=== PATIENT | male | born 1940 | race Caucasian/White ===

== ENCOUNTER 2024-01-19 15:10 | Emergency (ER) | payer MEDICARE ==
[~2024-01-19] VITALS: Ht 182.9 cm; Wt 79.4 kg
[2024-01-19] MEDS: BACI/NEOM/POLY B OINT PKT 1 UDPKT PACKET TP ONE (16:00)
[2024-01-19] MEDS ORDERED: TDAP [DIPH/PERTUSSIS/TET] 0.5 ML VIAL IM ONE (16:47)
[2024-01-19] MEDS: TDAP [DIPH/PERTUSSIS/TET] 0.5 ML VIAL IM ONE (16:52)
[2024-01-19 18:10] VITALS: BP 95/49; TEMP 98; O2SAT 99
== END 2024-01-19 18:10 | disposition home or self-care (01) ==
LOC: ER 15:24
DX: S01.81XA Laceration without foreign body of other part of head, initial encounter (principal); S41.112A Laceration without foreign body of left upper arm, initial encounter; M79.652 Pain in left thigh; I10 Essential (primary) hypertension; W18.30XA Fall on same level, unspecified, initial encounter; Y93.89 Activity, other specified; Y92.89 Other specified places as the place of occurrence of the external cause; Y99.8 Other external cause status
CPT/HCPCS: 99285; 70450; 90471; 90715; 73503; 73564; A6403; 73502

== ENCOUNTER 2024-12-27 18:26 | Inpatient (IN) | payer MEDICARE ==
[~2024-12-27] VITALS: Ht 182.9 cm; Wt 80.3 kg
[2024-12-27 20:09] LABS: LYMPHOCYTES # (AUTO) 0.5 K/uL (0.8-4.8); WHITE BLOOD COUNT (AUTO) 12.4 K/uL (4.3-11.0)
[2024-12-27 20:18] LABS: BASOPHILS % (AUTO) 0.3 % (0.0-2.0); HEMATOCRIT 32 % (39-51); HEMOGLOBIN 10.5 g/dL (13.5-17.5); LYMPHOCYTES % (AUTO) 3.7 % (20.0-44.0); MEAN CORPUSCULAR HEMOGLOBIN 34 PG (26.0-33.0); MEAN CORPUSCULAR HGB CONC 33 g/dl (31.0-36.0); MEAN CORPUSCULAR VOLUME 103 fL (80-96); MONOCYTES # (AUTO) 0.7 K/uL (0.1-1.30); MONOCYTES % (AUTO) 5.4 % (2.0-12.0); NEUTROPHILS # (AUTO) 11.2 K/uL (1.8-8.9); NEUTROPHILS % (AUTO) 90.6 % (43.0-81.0); PLATELET COUNT (AUTO) 311 K/uL (150-450); RED BLOOD CELL COUNT(AUTO) 3.06 MIL/uL (4.5-6.0); RED CELL DISTRIBUTION WIDTH 33.7 % (11.5-15.0)
[2024-12-27 20:31] LABS: ALANINE AMINOTRANSFERASE 36 U/L (12-78); ALBUMIN 4.5 g/dL (3.4-5.0); ALKALINE PHOSPHATASE 58 U/L (46-116); ASPARTATE AMINOTRANSFERASE 22 U/L (15-37); BILIRUBIN,DIRECT 0.6 mg/dL (0.0-0.2); BILIRUBIN,TOTAL 2.6 mg/dL (0.2-1.0); CALCIUM, SERUM 9.2 mg/dL (8.5-10.1); CARBON DIOXIDE 23 mmol/L (21-32); CHLORIDE 97 mmol/L (98-107); CREATININE 1.2 mg/dL (0.6-1.3); GLUCOSE 163 mg/dL (74-106); POTASSIUM 4.7 mmol/L (3.5-5.1); SODIUM SERUM 129 mmol/L (136-145); TOTAL PROTEIN, SERUM 7.4 g/dL (6.4-8.2); UREA NITROGEN, BLOOD 25 mg/dL (7-18)
[2024-12-27 20:33] LABS: ALCOHOL, BLOOD < 3 mg/dL (0-10); NT-PRO BNP 49 pg/mL (0-125)
[2024-12-27 21:01] LABS: APPEARANCE,URINE Clear (CLEAR); BILIRUBIN,URINE Negative (NEGATIVE); BLOOD, URINE Negative Ery/uL (NEGATIVE); COLOR,URINE YELLOW (YELLOW); KETONES,URINE Negative (NEGATIVE); LEUKOCYTE ESTERASE ,URINE Negative (NEGATIVE); NITRITE, URINE Negative (NEGATIVE); PH,URINE 5.5 (5.0-8.0); PROTEIN,URINE 100 mg/dl (NEGATIVE); UGLUCOSE Negative (NEGATIVE); UROBILINOGEN,URINE 0.2 EU/dL (0.2)
[2024-12-27 21:03] LABS: ADD URINE CULTURE NO; BACTERIA,URINE None seen /HPF (None Seen); RBC,URINE 0-2 /HPF (0-2); SQUAMOUS EPITHELIAL CELL,UR None Seen /HPF (None Seen); WBC,URINE 0-2 /HPF (0-3)
[2024-12-27 21:04] LABS: AMPHETAMINE, URINE NEGATIVE (NEGATIVE); BARBITURATE, URINE NEGATIVE (NEGATIVE); BENZODIAZEPINE, URINE NEGATIVE (NEGATIVE); COCCAINE, URINE NEGATIVE (NEGATIVE); OPIATE, URINE NEGATIVE (NEGATIVE); PHENCYCLIDINE SCREEN,URINE NEGATIVE (NEGATIVE)
[2024-12-27 21:11] LABS: CANNABINOID, URINE POSITIVE (NEGATIVE)
[2024-12-27] MEDS: IV NS 0.9% 1,000 ML BAG IV ONE (21:30)
[2024-12-27 22:04] LABS: ANISOCYTOSIS 1+; HYPOCHROMASIA 1+; MONOCYTES % (MANUAL) 5 % (0-11.0); MYELOCYTES % 1 % (0-0); NEUTROPHILS % (MANUAL) 94 (42-76); PLATELET ESTIMATE ADEQUATE
[2024-12-27 22:05] LABS: OVALOCYTES 1+
[2024-12-27] MEDS ORDERED: Z GUARD REMEDY 4 OZ OINT TP PRN (23:30)
[2024-12-27] MEDS ORDERED: ONDANSETRON HCL/PF 4 MG/2 ML VIAL IVP PRN (23:30)
[2024-12-27] MEDS ORDERED: MAGNESIUM HYDROXIDE 30 ML UDC PO PRN (23:30)
[2024-12-28 00:50] VITALS: BP 151/66; TEMP 97.5; O2SAT 99
[2024-12-28 01:35] VITALS: BP 151/66; TEMP 97.5; O2SAT 99
[2024-12-28] MEDS: IV NS 0.9% 1,000 ML IV PRN (01:40)
[2024-12-28 07:00] VITALS: BP 167/92; TEMP 97.3; O2SAT 99
[2024-12-28 07:32] LABS: BASOPHILS % (AUTO) 0.3 % (0.0-2.0); EOSINOPHILS % (AUTO) 0.4 % (0.0-6.0); HEMATOCRIT 28 % (39-51); HEMOGLOBIN 9.7 g/dL (13.5-17.5); LYMPHOCYTES # (AUTO) 0.6 K/uL (0.8-4.8); MEAN CORPUSCULAR HEMOGLOBIN 35 PG (26.0-33.0); MEAN CORPUSCULAR HGB CONC 34 g/dl (31.0-36.0); MEAN CORPUSCULAR VOLUME 103 fL (80-96); MONOCYTES # (AUTO) 0.7 K/uL (0.1-1.30); NEUTROPHILS # (AUTO) 7.7 K/uL (1.8-8.9); NEUTROPHILS % (AUTO) 84.3 % (43.0-81.0); PLATELET COUNT (AUTO) 288 K/uL (150-450); RED BLOOD CELL COUNT(AUTO) 2.74 MIL/uL (4.5-6.0); RED CELL DISTRIBUTION WIDTH 33.1 % (11.5-15.0); WHITE BLOOD COUNT (AUTO) 9.2 K/uL (4.3-11.0)
[2024-12-28 07:47] LABS: ALBUMIN 3.9 g/dL (3.4-5.0); BILIRUBIN,DIRECT 0.4 mg/dL (0.0-0.2); BILIRUBIN,TOTAL 2.6 mg/dL (0.2-1.0); TOTAL PROTEIN, SERUM 6.8 g/dL (6.4-8.2)
[2024-12-28 07:56] LABS: CALCIUM, SERUM 8.6 mg/dL (8.5-10.1); CREATININE 1.1 mg/dL (0.6-1.3); MAGNESIUM 2.1 mg/dL (1.8-2.4); PHOSPHORUS 3.2 mg/dL (2.5-4.9); POTASSIUM 4.6 mmol/L (3.5-5.1)
[2024-12-28 08:04] LABS: THYROID STIMULATING HORMONE 4.91 uIU/mL (0.358-3.74)
[2024-12-28] MEDS: PANTOPRAZOLE 40 MG TABLET.DR PO SCH (08:05)
[2024-12-28] MEDS ORDERED: VITA40TA PO (08:46)
[2024-12-28] MEDS ORDERED: TADA5TAB2 PO (08:46)
[2024-12-28] MEDS ORDERED: LISI10TA29 PO (08:46)
[2024-12-28] MEDS ORDERED: ZINC50TA69 PO (08:46)
[2024-12-28] MEDS ORDERED: IBUP-23 PO (08:46)
[2024-12-28] MEDS ORDERED: CHOL100062 PO (08:46)
[2024-12-28 09:07] LABS: ANISOCYTOSIS 3+; EOSINOPHILS % (MANUAL) 1 % (0-4); LYMPHOCYTES % (MANUAL) 8 % (16-48); MONOCYTES % (MANUAL) 8 % (0-11.0); NEUTROPHILS % (MANUAL) 83 (42-76); PLATELET ESTIMATE ADEQUATE
[2024-12-28 09:08] LABS: OVALOCYTES 1+; TARGET CELLS 1+
[2024-12-28] MEDS: ACETAMINOPHEN 325 MG TABLET PO PRN (09:55)
[2024-12-28] MEDS: DIAZEPAM 5 MG TABLET PO ONE (10:33)
[2024-12-28 12:46] LABS: CREATININE, URINE 65.5 MG/DL (30.0-125.0); URINE TOTAL PROTEIN 28.9 mg/dL (0-11.9)
[2024-12-28] MEDS ORDERED: HYDROCODONE/APAP 5/325MG TABLET PO PRN (13:00)
[2024-12-28] MEDS: CEFTRIAXONE 1 G in IV D5W 50 ML IV SCH (14:15)
[2024-12-28 16:00] VITALS: BP 146/72; TEMP 97.9; O2SAT 100
[2024-12-28 20:00] VITALS: BP 158/80; TEMP 97.3; O2SAT 100
[2024-12-28] MEDS: TAMSULOSIN 0.4 MG CAP.SR.24H PO SCH (22:34)
[2024-12-29 07:45] LABS: BASOPHILS % (AUTO) 0.8 % (0.0-2.0); EOSINOPHILS # (AUTO) 0.1 K/uL (0.0-0.7); EOSINOPHILS % (AUTO) 1.6 % (0.0-6.0); HEMATOCRIT 26 % (39-51); HEMOGLOBIN 8.8 g/dL (13.5-17.5); LYMPHOCYTES # (AUTO) 0.7 K/uL (0.8-4.8); LYMPHOCYTES % (AUTO) 13.9 % (20.0-44.0); MEAN CORPUSCULAR HEMOGLOBIN 35 PG (26.0-33.0); MEAN CORPUSCULAR HGB CONC 34 g/dl (31.0-36.0); MEAN CORPUSCULAR VOLUME 104 fL (80-96); MONOCYTES # (AUTO) 0.4 K/uL (0.1-1.30); MONOCYTES % (AUTO) 8.7 % (2.0-12.0); NEUTROPHILS # (AUTO) 3.6 K/uL (1.8-8.9); PLATELET COUNT (AUTO) 222 K/uL (150-450); WHITE BLOOD COUNT (AUTO) 4.8 K/uL (4.3-11.0)
[2024-12-29] MEDS: ZINC SULFATE 220 MG CAPSULE PO SCH (08:29)
[2024-12-29] MEDS: CHOLECALCIFEROL 1,000 UNIT TABLET (VIT D3) PO SCH (08:29)
[2024-12-29] MEDS: LISINOPRIL (10MG) 10 MG TABLET PO SCH (08:29)
[2024-12-29 08:41] LABS: CALCIUM, SERUM 8.3 mg/dL (8.5-10.1); MAGNESIUM 2.2 mg/dL (1.8-2.4); PHOSPHORUS 3.6 mg/dL (2.5-4.9); POTASSIUM 4.4 mmol/L (3.5-5.1)
[2024-12-29] MEDS ORDERED: TAMS-12 PO (08:41)
[2024-12-29 09:08] LABS: THYROID STIMULATING HORMONE 4.89 uIU/mL (0.358-3.74); URIC ACID 6.4 mg/dL (2.6-7.2)
[2024-12-29 10:36] VITALS: BP 137/70; TEMP 97.2; O2SAT 97
== END 2024-12-29 11:00 | disposition home or self-care (01) | DRG 92 ==
LOC: ER 18:35 → TELE 12-28 00:23 → MED 12-28 01:18
PROVIDERS: ADMIT Nurse Practitioner Family; ATTEND Nurse Practitioner Acute Care
DX: G92.9 Unspecified toxic encephalopathy (principal); E87.1 Hypo-osmolality and hyponatremia; R65.10 Systemic inflammatory response syndrome (SIRS) of non-infectious origin without acute organ dysfunction; E86.0 Dehydration; D72.829 Elevated white blood cell count, unspecified; F12.10 Cannabis abuse, uncomplicated; I10 Essential (primary) hypertension; D53.9 Nutritional anemia, unspecified; R79.89 Other specified abnormal findings of blood chemistry; K82.8 Other specified diseases of gallbladder; K80.20 Calculus of gallbladder without cholecystitis without obstruction; N40.1 Benign prostatic hyperplasia with lower urinary tract symptoms; R33.8 Other retention of urine; E80.6 Other disorders of bilirubin metabolism; E86.9 Volume depletion, unspecified; R94.6 Abnormal results of thyroid function studies; E03.8 Other specified hypothyroidism; Z79.899 Other long term (current) drug therapy; Z83.79 Family history of other diseases of the digestive system
CPT/HCPCS: 36415; 70450-TC; 71045-TC; 76705-TC; 80048-TC; 80076-TC; 81001; 82570-TC; 83735-TC; 83880; 83935-TC; 84100-TC; 84300-TC; 84439-TC; 84443-TC; 84484-TC; 84550-TC; 85025-TC; 87081-TC; A4223; G0378; G0480; J0696; J7030; J7060

== ENCOUNTER 2025-09-25 10:47 | Emergency (ER) | payer MEDICARE ==
[~2025-09-25] VITALS: Ht 182.9 cm; Wt 77.1 kg
[~2025-09-25 10:47] MED LIST: CHOL100062 PO; IBUP-23 PO; LISI10TA29 PO; TADA5TAB2 PO; TAMS-12 PO; VITA40TA PO; ZINC50TA69 PO
[2025-09-25 10:55] VITALS: TEMP 98.3
[2025-09-25] MEDS ORDERED: LIDOCAINE 2% JEL UROJET 10 ML MM ONE (11:11)
[2025-09-25] MEDS: LIDOCAINE 2% JEL UROJET 10 ML MM ONE (11:25)
[2025-09-25 11:36] LABS: APPEARANCE,URINE CLEAR (CLEAR); BLOOD, URINE Moderate Ery/uL (NEGATIVE); LEUKOCYTE ESTERASE ,URINE Negative (NEGATIVE); NITRITE, URINE NEGATIVE (NEGATIVE); UGLUCOSE Negative (NEGATIVE)
[2025-09-25 11:47] LABS: ADD URINE CULTURE NO; SQUAMOUS EPITHELIAL CELL,UR Few /HPF (None Seen)
[2025-09-25 11:50] VITALS: BP 135/85; O2SAT 98
== END 2025-09-25 11:48 | disposition home or self-care (01) ==
LOC: ER 10:58
DX: N40.1 Benign prostatic hyperplasia with lower urinary tract symptoms (principal); I10 Essential (primary) hypertension; R33.8 Other retention of urine; Z79.899 Other long term (current) drug therapy
CPT/HCPCS: 99284; 51702; 87086; 81001; J3490

== ENCOUNTER 2025-09-26 16:06 | Emergency (ER) | payer MEDICARE ==
[~2025-09-26] VITALS: Ht 182.9 cm; Wt 78.6 kg
[2025-09-26 16:15] VITALS: BP 141/60; TEMP 98.3; O2SAT 99
[2025-09-26 17:00] LABS: PLATELET COUNT (AUTO) 194 K/uL (150-450); RED BLOOD CELL COUNT(AUTO) 2.56 MIL/uL (4.5-6.0); RED CELL DISTRIBUTION WIDTH 34.9 % (11.5-15.0); WHITE BLOOD COUNT (AUTO) 5.0 K/uL (4.3-11.0)
[2025-09-26 17:13] LABS: CALCIUM, SERUM 8.6 mg/dL (8.5-10.1); CREATININE 1.2 mg/dL (0.6-1.3); SODIUM SERUM 137.0 mmol/L (136-145); UREA NITROGEN, BLOOD 20.0 mg/dL (7-18)
[2025-09-26 17:40] LABS: APPEARANCE,URINE CLOUDY (CLEAR); BLOOD, URINE 3+ Ery/uL (NEGATIVE); LEUKOCYTE ESTERASE ,URINE NEGATIVE (NEGATIVE); NITRITE, URINE NEGATIVE (NEGATIVE); UGLUCOSE NEGATIVE (NEGATIVE)
[2025-09-26 17:55] LABS: ADD URINE CULTURE YES; SQUAMOUS EPITHELIAL CELL,UR Few /HPF (None Seen)
== END 2025-09-26 18:18 | disposition home or self-care (01) ==
LOC: ER 16:09
DX: T83.9XXA Unspecified complication of genitourinary prosthetic device, implant and graft, initial encounter (principal); R31.9 Hematuria, unspecified; I10 Essential (primary) hypertension; N40.1 Benign prostatic hyperplasia with lower urinary tract symptoms; Z46.6 Encounter for fitting and adjustment of urinary device; Z79.899 Other long term (current) drug therapy; Y84.6 Urinary catheterization as the cause of abnormal reaction of the patient, or of later complication, without mention of misadventure at the time of the procedure
CPT/HCPCS: 36415; 80048-TC; 81001; 85025-TC; 87086-TC